=== PATIENT | female | born 2000 | race Caucasian/White ===

== ENCOUNTER 2024-05-26 06:30 | Emergency (ER) | payer BC ==
[~2024-05-26] VITALS: Ht 162.6 cm; Wt 86.2 kg
[2024-05-26 06:37] VITALS: BP_SYST 128; PULSE 82; RESP 20; TEMP 97.1; O2SAT 97
[2024-05-26] MEDS: KETOROLAC TROMETHAMINE 30 MG VIAL IM ONE (07:37)
[2024-05-26] MEDS: ACETAMINOPHEN 500 MG TABLET PO ONE (07:38)
[2024-05-26] MEDS: FLUORESCEIN SODIUM 1 MG OPHTHALMIC STRIP OP ONE (07:45)
[2024-05-26] MEDS: TETRACAINE HCL/PF 0.5% OPHTHALMIC DROPS 4 ML OP ONE (07:46)
[2024-05-26] MEDS ORDERED: [UNRECOGNIZED DRUG - CODE] RIGHT EYE (08:45)
[2024-05-26 08:56] VITALS: BP_SYST 128; PULSE 82; RESP 20; TEMP 97.1; O2SAT 97
== END 2024-05-26 08:55 | disposition home or self-care (01) ==
LOC: SED 06:30
DX: H10.89 Other conjunctivitis (principal); Z79.2 Long term (current) use of antibiotics
CPT/HCPCS: 99283; 96372; J1885